=== PATIENT | male | born 2000 | race Caucasian/White ===

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

== ENCOUNTER 2024-07-23 08:15 | Emergency (ER) | payer OTHER ==
[~2024-07-23] VITALS: Ht 160 cm; Wt 104.8 kg
[~2024-07-23 08:15] MED LIST: AMOX1TAB5 PO; IBU600 MG PO
[2024-07-23] MEDS ORDERED: KETOROLAC TROMETHAMINE 60 MG VIAL IM ONE ×2 (09:30→09:44)
[2024-07-23] MEDS ORDERED: ORPHENADRINE CITRATE 30 MG/ML AMPUL IM ONE (09:30)
[2024-07-23] MEDS ORDERED: DEXAMETHASONE SODIUM PHOSPHATE 4 MG/ML VIAL IM ONE (09:30)
[2024-07-23] MEDS ORDERED: ORPHENADRINE CITRATE 30 MG/ML AMPUL ONE (09:44)
[2024-07-23] MEDS ORDERED: DEXAMETHASONE SODIUM PHOSPHATE 4 MG/ML VIAL ONE (09:45)
[2024-07-23] MEDS ORDERED: DICLOFENAC SODI75 MG PO (11:51)
[2024-07-23] MEDS ORDERED: BACLOFEN10 MG PO (11:51)
== END 2024-07-23 13:26 | disposition home or self-care (01) ==
LOC: ER 08:15
DX: M54.50 Low back pain, unspecified (principal); J45.909 Unspecified asthma, uncomplicated